=== PATIENT | male | born 1975 | race African-American/Black ===

== ENCOUNTER 2019-09-17 15:25 | Emergency (ER) | payer OTHER ==
[~2019-09-17] VITALS: Ht 175.3 cm; Wt 74.8 kg
[2019-09-17 15:27] VITALS: BP 137/97
[2019-09-17] MEDS ORDERED: METOPROLOL SUCC25 MG ORAL (15:32)
[2019-09-17] MEDS ORDERED: NORCO 5-325 TA1 EACH ORAL (15:32)
[2019-09-17] MEDS ORDERED: TRAMADOL HCL50 MG ORAL (15:32)
[2019-09-17] MEDS ORDERED: AMLODIPINE BESYL5 MG ORAL (15:32)
[2019-09-17] MEDS ORDERED: FAMOTIDINE20 MG ORAL (15:32)
[2019-09-17] MEDS ORDERED: FOLIC ACID1 MG ORAL (15:32)
[2019-09-17] MEDS ORDERED: VITAMIN C500 M1 ORAL (15:32)
--- NOTE | 2019-09-17 15:35 | NUR ---
ED Nurse Note: patient is brought into ED from [facility] by ambulance [facility] unit [facility] for suprapubic catheter replacement, it is leaking and wetting the towel around the stoma, stoma dressing is wet with foul odor pus. patient is alert awake, on a hospital gown, speaking in full sentences, in no acute distress.
--- NOTE | 2019-09-17 16:00 | NUR ---
ED Nurse Note: suprapubic catheter changed by Dr Green with 24 Samoan catheter without complication, as soon as Dr. Green changed the catheter, pus looking yellow- purulent fluid was draining from the catheter, sample sent to the lab.
--- NOTE | 2019-09-17 16:09 | Emergency Room Report ---
History of Present Illness General Chief Complaint: Male Urogenital Problems Source: Patient, Medical Record, EMS Present Illness HPI 43-year-old male history of suprapubic catheter chronic, history of recurrent UTI presents with obstruction of his current Hernandez catheter, with leakage around the site, no fevers no chills, no known aggravating leaving factors severity is moderate, constant patient presents for catheter change Allergies: Coded Allergies: No Known Allergies (Unverified , 09/17/19) Patient History Past Medical History: see triage record Reviewed Nursing Documentation: PMH: Agreed; PSxH: Agreed Nursing Documentation-PMH Past Medical History: No History, Except For Hx Hypertension: Yes Review of Systems All Other Systems: negative except mentioned in HPI Physical Exam Vital Signs Date Time Temp Pulse Resp B/P (MAP) Pulse Ox O2 Delivery O2 Flow Rate FiO2 09/17/19 15:27 97.3 85 16 137/97 (110) 100 Room Air Sp02 EP Interpretation: reviewed, normal General Appearance: well appearing, no apparent distress, alert Head: normocephalic, atraumatic Eyes: bilateral eye PERRL, bilateral eye EOMI ENT: uvula midline, moist mucus membranes Neck: supple, thyroid normal, supple/symm/no masses Respiratory: lungs clear, no respiratory distress, no retraction, no accessory muscle use Cardiovascular #1: normal peripheral pulses, regular rate, rhythm, no edema, no gallop, no murmur Gastrointestinal: non tender, soft, no guarding, no rebound Musculoskeletal: normal inspection Neurologic: alert, oriented x3 Psychiatric: mood/affect normal Skin: no rash, warm/dry Procedures Additional Procedure Procedure Narrative A suprapubic catheter 24Fr was inserted using sterile technique, draining by gravity, and secured with StatLock. A second provider was present to confirm sterility. After catheter was exchanged, pus drained out Medical Decision Making Diagnostic Impression: Primary Impression: Complicated UTI (urinary tract infection) ER Course 43-year-old male history of recurrent multidrug-resistant UTI in the past, presents with clogged catheter, catheter was exchanged patient found to have pus draining from the catheter We will admit patient for complicated UTI will start Christi Patient accepted by Dr. Lemon Patient to be transferred to outside hospital Laboratory Tests Test 09/17/19 16:15 White Blood Count 6.5 K/UL (4.8-10.8) Red Blood Count 4.78 M/UL (4.70-6.10) Hemoglobin 14.9 G/DL (14.2-18.0) Hematocrit 44.1 % (42.0-52.0) Mean Corpuscular Volume 92 FL (80-99) Mean Corpuscular Hemoglobin 31.3 PG (27.0-31.0) H Mean Corpuscular Hemoglobin Concent 33.9 G/DL (32.0-36.0) Red Cell Distribution Width 15.8 % (11.6-14.8) H Platelet Count 224 K/UL (150-450) Mean Platelet Volume 9.5 FL (6.5-10.1) Neutrophils (%) (Auto) 31.9 % (45.0-75.0) L Lymphocytes (%) (Auto) 53.5 % (20.0-45.0) H Monocytes (%) (Auto) 8.3 % (1.0-10.0) Eosinophils (%) (Auto) 4.1 % (0.0-3.0) H Basophils (%) (Auto) 2.1 % (0.0-2.0) H Urine Color Yellow Urine Appearance Turbid Urine pH 7 (4.5-8.0) Urine Specific Ronks 1.010 (1.005-1.035) Urine Protein 3+ (NEGATIVE) H Urine Glucose (UA) Negative (NEGATIVE) Urine Ketones Negative (NEGATIVE) Urine Blood 5+ (NEGATIVE) H Urine Nitrite Positive (NEGATIVE) H Urine Bilirubin Negative (NEGATIVE) Urine Urobilinogen 1 MG/DL (0.0-1.0) H Urine Leukocyte Esterase 2+ (NEGATIVE) H Urine RBC 15-20 /HPF (0 - 0) H Urine WBC Tntc /HPF (0 - 0) H Urine Squamous Epithelial Cells Few /LPF (NONE/OCC) Urine Bacteria Moderate /HPF (NONE) H Sodium Level 141 MMOL/L (136-145) Potassium Level 5.7 MMOL/L (3.5-5.1) H Chloride Level 106 MMOL/L (98-107) Carbon Dioxide Level 27 MMOL/L (21-32) Anion Gap 8 mmol/L (5-15) Blood Urea Nitrogen 20 mg/dL (7-18) H Creatinine 0.8 MG/DL (0.55-1.30) Estimate Glomerular Filtration Rate > 60 mL/min (>60) Glucose Level 97 MG/DL (74-106) Calcium Level 9.8 MG/DL (8.5-10.1) Total Bilirubin 0.8 MG/DL (0.2-1.0) Aspartate Amino Transferase (AST) 183 U/L (15-37) H Alanine Aminotransferase (ALT) 192 U/L (12-78) H Alkaline Phosphatase 128 U/L (46-116) H Total Protein 8.0 G/DL (6.4-8.2) Albumin 3.4 G/DL (3.4-5.0) Globulin 4.6 g/dL Albumin/Globulin Ratio 0.7 (1.0-2.7) L Last Vital Signs Date Time Temp Pulse Resp B/P (MAP) Pulse Ox O2 Delivery O2 Flow Rate FiO2 09/17/19 15:27 97.3 85 16 137/97 (110) 100 Room Air Disposition: XFER SHT-TRM HOSP Condition: Stable Roberto Green MD Sep 17, 2019 16:09
[2019-09-17] MEDS ORDERED: Piperacillin/Tazobactam 3.375 GM in NS 110 ML IVPB ONE (16:15)
[2019-09-17] MEDS ORDERED: Hydromorphone 0.5mg/0.5ml inj IVP ONE (16:15)
[2019-09-17 16:43] LABS: BASOPHILS % (AUTO) 2.1 % (0.0-2.0); EOSINOPHILS % (AUTO) 4.1 % (0.0-3.0); HEMATOCRIT 44.1 % (42.0-52.0); HEMOGLOBIN 14.9 G/DL (14.2-18.0); LYMPHOCYTES % (AUTO) 53.5 % (20.0-45.0); MEAN CORPUSCULAR VOLUME 92 FL (80-99); MONOCYTES % (AUTO) 8.3 % (1.0-10.0); NEUTROPHILS % (AUTO) 31.9 % (45.0-75.0); PLATELET COUNT 224 K/UL (150-450); RED BLOOD COUNT 4.78 M/UL (4.70-6.10); RED CELL DISTRIBUTION WIDTH 15.8 % (11.6-14.8); WHITE BLOOD COUNT 6.5 K/UL (4.8-10.8)
[2019-09-17 16:44] LABS: APPEARANCE,URINE TURBID; BILIRUBIN, URINE NEGATIVE (NEGATIVE); GLUCOSE, URINE (UA) NEGATIVE (NEGATIVE); KETONES,URINE NEGATIVE (NEGATIVE); LEUKOCYTE ESTERASE ,URINE 2+ (NEGATIVE); NITRITE,URINE POSITIVE (NEGATIVE); PH,URINE 7 (4.5-8.0); PROTEIN,URINE 3+ (NEGATIVE); UROBILINOGEN,URINE 1 MG/DL (0.0-1.0)
[2019-09-17 16:46] LABS: COLOR,URINE YELLOW
[2019-09-17 16:56] LABS: ANION GAP 8 mmol/L (5-15); BLOOD UREA NITROGEN 20 mg/dL (7-18); CALCIUM 9.8 MG/DL (8.5-10.1); CARBON DIOXIDE 27 MMOL/L (21-32); CHLORIDE 106 MMOL/L (98-107); CREATININE 0.8 MG/DL (0.55-1.30); POTASSIUM 5.7 MMOL/L (3.5-5.1); SODIUM 141 MMOL/L (136-145)
[2019-09-17 17:01] LABS: ALANINE AMINOTRANSFERASE 192 U/L (12-78); ALBUMIN 3.4 G/DL (3.4-5.0); ALBUMIN/GLOBULIN RATIO 0.7 (1.0-2.7); ALKALINE PHOSPHATASE 128 U/L (46-116); ASPARTATE AMINO TRANSFERASE 183 U/L (15-37); BILIRUBIN,TOTAL 0.8 MG/DL (0.2-1.0)
--- NOTE | 2019-09-17 18:23 | NUR ---
ED Nurse Note: report given to Ashely BELL at [facility], endorsed all plan of care to her.
--- NOTE | 2019-09-17 19:00 | NUR ---
HAND-OFF: Report given to KRISTY AGUILAR RN.
--- NOTE | 2019-09-17 19:00 | NUR ---
ED Nurse Note: RECEIVED PT FROM JOVI BELL. PATIENT RESTING IN BED WITH NO ACUTE DISTRESS. VSS. IV INTACT AND PATENT. BED LOCKED AT LOWEST POSITION; SIDE RAILS RAISED. AWARE OF PENDING TRANSFER; WAITING FOR EMS TRANSPORT. WILL CONTINUE TO MONITOR.
[2019-09-17 19:12] VITALS: BP 129/85
--- NOTE | 2019-09-17 20:15 | History and Physical Report ---
DATE OF ADMISSION: 09/17/2019 HISTORY OF PRESENT ILLNESS: This is a 43-year-old male who came to the emergency room for having suprapubic catheter, which was leaking and no urine. The patient also slightly distended and was found as in the urine. The patient is currently physically awake, alert. Looks dehydrated. PAST MEDICAL HISTORY: As listed in H and P. PHYSICAL EXAMINATION: GENERAL: This is elderly male, lying in bed in the ER. VITAL SIGNS: Blood pressure 130/70, pulse 74, respirations 18. HEENT: AT/NC. EOMI. PERRLA. Pharynx clear. Trachea midline. NECK: Supple. No lymphadenopathy. CHEST: Bilateral crackles. CARDIOVASCULAR: Regular rhythm. No gallop. No murmur. ABDOMEN: Soft. Positive bowel sounds. Nontender. EXTREMITIES: CCE. NEUROLOGICAL: The patient has no focal deficit. GENITOURINARY: Deferred. ASSESSMENT: 1. VRE in the urine. 2. Malfunctioning of the suprapubic catheter. 3. Depression. PLAN: We will currently continue current treatment and add antibiotics. The patient is going to be transferred to [facility] where he is going to receive medical treatment and antibiotics. Arnold Handley M.D. DR: KYREE JOB#: [id number] CC:
--- NOTE | 2019-09-17 21:25 | NUR ---
ED Nurse Note: REPORT GIVEN TO [facility]. PATIENT AO4. NAD. VSS. IV INTACT AND PATENT. PATIENT STABLE FOR TRANSPORT. PATIENT LEFT VIA GURNEY WITH ALL BELONGINGS.
[2019-09-17 21:26] VITALS: BP 126/82
== END 2019-09-17 21:25 | disposition short-term general hospital (02) ==
LOC: EDBD 15:25 → EMR 15:40
DX: T83.098A Other mechanical complication of other urinary catheter, initial encounter (principal); N39.0 Urinary tract infection, site not specified; I10 Essential (primary) hypertension
CPT/HCPCS: 36415; 51702; 80053; 81003; 85025; 87086; 87181; 96365; 96375; J1170; J2405; J2543; Z7502; 99285